=== PATIENT | male | born 1990 | race Hispanic/Latino ===

== ENCOUNTER 2016-09-22 01:37 | Emergency (ER) | payer OTHER, BC ==
[2016-09-22 01:47] VITALS: RESP 16
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
[2016-09-22 03:49] VITALS: BP 138/87; PULSE 78; TEMP 97.8
[2016-09-22 03:58] VITALS: O2SAT 97
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
== END 2016-09-22 03:49 | disposition home or self-care (01) ==
LOC: C.ER 01:37
DX: S13.4XXA Sprain of ligaments of cervical spine, initial encounter (principal); V43.52XA Car driver injured in collision with other type car in traffic accident, initial encounter; Y92.410 Unspecified street and highway as the place of occurrence of the external cause